=== PATIENT | female | born 1970 | race Caucasian/White ===

== ENCOUNTER 2023-04-15 10:59 | Emergency (ER) | payer BC ==
[2023-04-15 11:20] VITALS: BP 111/74; RESP 16; TEMP 100.1; BMI 34.5
[2023-04-15] MEDS ORDERED: ACETAMINOPHEN 325 MG TABLET (FP) PO ONE (11:23)
[2023-04-15] MEDS ORDERED: ACETAMINOPHEN 325 MG TABLET (FP) ONE (11:30)
[2023-04-15] MEDS ORDERED: ONDANSETRON *ODT* 4 MG TABLET SL ONE (11:41)
[2023-04-15] MEDS ORDERED: ONDANSETRON *ODT* 4 MG TABLET ONE (11:45)
[2023-04-15] MEDS ORDERED: CIPROFLOXACIN 500 MG TABLET (RESTRICTED TO ID) PO ONE (11:56)
[2023-04-15] MEDS ORDERED: CIPROFLOXACIN 250 MG TABLET (RESTRICTED TO ID) PO ONE (12:10)
[2023-04-15 12:13] VITALS: PULSE 96
[2023-04-15 12:44] LABS: EPITHELIAL CELLS FEW /hpf
== END 2023-04-15 12:37 | disposition home or self-care (01) ==
LOC: FER 10:59
DX: M54.9 Dorsalgia, unspecified (principal); R10.30 Lower abdominal pain, unspecified; R50.9 Fever, unspecified; R30.0 Dysuria; R11.0 Nausea; N39.0 Urinary tract infection, site not specified
CPT/HCPCS: 81003; 81015; 84703; 87086; 87186; 99283-25; Q0162